=== PATIENT | female | born 1985 | race Hispanic/Latino ===

== ENCOUNTER 2024-02-07 09:40 | Emergency (ER) | payer SELFPAY ==
[2024-02-07 09:43] VITALS: BP 116/65
--- NOTE | 2024-02-07 10:09 | ED.GENMED ---
History of Present Illness
General
Chief Complaint: Musculo-Skeletal Complaint
Time Seen by Provider: 02/07/24 10:03
History of Present Illness
History of Present Illness:
38 yo otherwise healthy female presents to the Emergency Department for evaluation of non traumatic R thumb pain x 2 days. Pain and swelling located at the IP joint. No fever, chills, sweats, redness. No recent manicure.
Past History
Past History
ED Past Medical History: None (pt is French speaking only, presents to ED with her Qatari speaking friend )
ED Past Surgical History: None
Patient has exhibited threatening behavior?: No
Social History
Tobacco: Non-smoker
Alcohol: None
Drug: None
Personal:
Living: with family
Employment: Not employed
Family History
Family History: Unable to obtain
Review of Systems
Review of Systems
Allergies reviewed?: Yes
All Other Systems: ROS reviewed and negative except as documented in HPI and ROS
Phy Exam
Physical Exam
Physical Exam:
Gen: WDWN, NAD
HENT: NCAT, PERRLA, no scleral icterus
Cardiac: RRR, no murmur
Lungs: Normal respiratory effort; CTAB
Abdomen: NABS; soft, nontender, no rigidity
MSK: Mild swelling of the R thumb IP joint. ROM restricted by swelling however flexion/extension WNL. No erythema or pain w/ PROM.
Neuro: AO x 3
Psych: Calm, cooperative, appropriate hygiene
Course
Orders/Labs/Results
Orders:
Orders
02/07/24 09:51
Thumb/Finger 2 View Rt [CR Finger(s)/thumb Min 2 Vw Rt] Urgent
Comment:
Reason For Exam: pain swelling
Vital Signs
Initial and Last Documented VS:
Initial Vital Signs
Temp Pulse Resp BP Pulse Ox
98.1 F 63 18 116/65 98
02/07/24 09:43 02/07/24 09:43 02/07/24 09:43 02/07/24 09:43 02/07/24 09:43
Last Documented Vital Signs
Temp Pulse Resp BP Pulse Ox
98.1 F 63 18 116/65 98
02/07/24 09:43 02/07/24 09:43 02/07/24 09:43 02/07/24 09:43 02/07/24 09:43
MDM/Problems Addressed
MDM/Problems Addressed:
XR of the thumb independently interpreted by me negative for fx. Could be inflammatory arthritis such as gout. No significant erythema/warmth or inciting event to suggest septic arthritis. Will trial course of NSAIDs; Rx written for abx however
discussed wait and see approach.
*Critical Care Note
Total Time (30-74mins, 75-104mins- exclusive of procedures): Not Applicable
ED Attending Note
-
Portions of this chart may have been created with voice recognition software.� Occasional wrong word or��sound alike� substitutions may have occurred due to the inherent limitations of voice recognition software.
Discharge Plan
Departure
Patient Disposition: Home (Routine Discharge)
Date of Disposition: 02/07/24
Time of Disposition: 10:12
Patient with high blood pressure during this ER visit?: No
Discharge Problem:
Localized swelling of left thumb
Instructions: Sprain (DC)
Prescriptions:
New
cephalexin 500 mg capsule
500 mg PO Q8H 5 Days Qty: 15 0RF
diclofenac sodium 75 mg tablet,delayed release (DR/EC)
75 mg PO BID PRN (Reason: Pain) Qty: 20 0RF
No Action
hydrocodone-acetaminophen 1 TABLET tablet
1 tab PO Q4HPRN PRN (Reason: severe pain) Qty: 10 0RF
prednisone 20 MG tablet
40 mg PO DAILY Qty: 8 0RF
meloxicam 15 mg tablet
15 mg PO DAILY 10 Days Qty: 10 0RF
Activity Restrictions/Additional Instructions:
Take the anti inflammatory medication (diclofenac) twice daily for 1 week
If symptoms are not improving in 3-5 days, or if the thumb appears more red/warm/painful, start the antibiotic
Ice the thumb for 20 minutes at least 3 times per day
Interventions
Interventions:
*Risk Screen - Suicide Last Done: 02/07/24 09:50
*General Assessment Last Done: 02/07/24 09:50
*Neglect/Abuse Screening Last Done: 02/07/24 09:50
*Nursing Disposition Last Done: 02/07/24 10:29
Discharge Date and Time
Discharge Date/Time: 02/07/24 10:22
Print Language: BHUTANESE
== END 2024-02-07 10:22 | disposition home or self-care (01) ==
LOC: EMR 09:40
PROVIDERS: EMERGENCY PHYSICIAN Emergency Medicine; FAMILY PHYSICIAN Nurse Practitioner Adult Health
DX: R22.32 Localized swelling, mass and lump, left upper limb (principal)
CPT/HCPCS: 99283; 73140